=== PATIENT | female | born 2000 | race Caucasian/White ===

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

== ENCOUNTER 2019-03-30 21:45 | Emergency (ER) | payer OTHER ==
--- NOTE | 2019-03-30 22:21 | ED ---
Lower Extremity - HPI Summary HPI Summary: 18 year old F presenting to [facility] accompanied by male marketing automation analyst complains of worsening left foot pain and swelling since waking up yesterday 03/29 AM. States she had dance practice on 03/28. No injury/trauma. States she was unable to sleep last night. States the pain and swelling started at her toes then progressed up her foot. States she was seen at [facility] today 03/29 AM, was given ibuprofen, and was placed on Keflex. The patient rates the pain 9/10 in severity. Symptoms aggravated by movement. Symptoms alleviated by elevating her left foot, icing her left foot, taking ibuprofen last taken today 03/29 AM. - History of Current Complaint Chief Complaint: EDExtremityLower Stated Complaint: SWOLLEN LEFT FOOT PER PT Time Seen by Provider: 03/30/19 22:13 Hx Obtained From: Patient Onset of Pain: Days - 1 Onset/Duration: Still Present Severity Currently: Severe Pain Intensity: 9 Pain Scale Used: 0-10 Numeric Timing: Constant Location: Is Discrete @ - left foot Aggravating Factor(s): Movement Alleviating Factor(s): Other - elevating her left foot, icing her left foot, taking ibuprofen last taken today 03/29 AM - Allergies/Home Medications Allergies/Adverse Reactions: Allergies Allergy/AdvReac Type Severity Reaction Status Date / Time No Known Allergies Allergy Verified 03/30/19 22:02 PMH/Surg Hx/FS Hx/Imm Hx Endocrine/Hematology History: Denies: Hx Anticoagulant Therapy, Hx Sickle Cell Disease Cardiovascular History: Denies: Hx Cardiac Arrest, Hx Pacemaker/ICD Respiratory History: Denies: Hx Lung Cancer GI History: Denies: Hx Ileostomy History: Denies: Hx Dialysis Sensory History: Reports: Hx Contacts or Glasses Denies: Hx Legally Blind, Hx Deafness, Hx Hearing Aid Opthamlomology History: Reports: Hx Contacts or Glasses Denies: Hx Legally Blind Neurological History: Reports: Hx Headaches - s/p severe concussion 2016 Psychiatric History: Denies: Hx Schizophrenia - Surgical History Surgery Procedure, Year, and Place: Labrum torn bilateral hips Hx Anesthesia Reactions: No Infectious Disease History: No Infectious Disease History: Denies: Traveled Outside the [place] in Last 30 Days - Family History Known Family History: Negative: Seizure Disorder - Social History Alcohol Use: Rare Hx Substance Use: Yes Substance Use Type: Reports: Marijuana Substance Use Comment - Amount & Last Used: Only Occasionally Hx Tobacco Use: No Smoking Status (MU): Never Smoked Tobacco Review of Systems Negative: Fever Positive: Other - worsening left foot pain and swelling All Other Systems Reviewed And Are Negative: Yes Physical Exam - Summary Physical Exam Summary: Appearance: Well-appearing, Well-nourished, lying in bed comfortable Skin: Warm, dry, no obvious rash Eyes: sclera anicteric, no conjunctival pallor ENT: mucous membranes moist Neck: deferred Respiratory: No signs of respiratory distress Cardiovascular: Appears well perfused, pulses are nml Abdomen: deferred Musculoskeletal: There is an area of cellulitis on the left great toe with some distension into adjacent forefoot. No lymphangitic streaking, fluctuance or other signs of abscess. Neurological: Awake and alert, mentation is normal, speech is fluent and appropriate Psychiatric: affect is normal, does not appear anxious or depressed Triage Information Reviewed: Yes Vital Signs On Initial Exam: Initial Vitals Temp Pulse Resp BP Pulse Ox 98.3 F 83 16 129/89 96 03/30/19 21:56 03/30/19 21:56 03/30/19 21:56 03/30/19 21:56 03/30/19 21:56 Vital Signs Reviewed: Yes Procedures - Sedation Patient Received Moderate/Deep Sedation with Procedure: No Diagnostics - Vital Signs Vital Signs Temp Pulse Resp BP Pulse Ox 03/30/19 21:56 98.3 F 83 16 129/89 96 - Laboratory Result Diagrams: 03/30/19 22:41 03/30/19 22:41 Lab Statement: Any lab studies that have been ordered have been reviewed, and results considered in the medical decision making process. Lower Extremity Course/Dx - Course Course Of Treatment: 18 year old F complains of worsening left foot pain and swelling since waking up yesterday 03/29 AM. States she had dance practice on . No injury/trauma. States she was seen at [facility] today 10 AM, was given ibuprofen, and was placed on Keflex. Upon exam, there is an area of cellulitis on the left great toe with some distension into adjacent forefoot. No lymphangitic streaking, fluctuance or other signs of abscess. Bloodwork results with no significant abnormalities except for RBC 4.94, RDW 16, absolute monos 0.9. The patient has not had ibuprofen since today 10 AM. In the ED course, the patient was given ibuprofen 400 mg PO. Patient will be discharged home with follow up from [facility] at . She was advised to continue taking the antibiotic and was instructed to return to Emergency Department for new or worsening symptoms. She was advised to use ice, take Motrin or Naprosyn for the pain. Patient understands and is agreeable to this plan - Diagnoses Provider Diagnoses: Cellulitis Discharge ED - Sign-Out/Discharge Documenting (check all that apply): Patient Departure - Discharge - Discharge Plan Condition: Good Disposition: HOME Patient Education Materials: Cellulitis (ED) Referrals: [facility] @ [Outside] Additional Instructions: It looks like you have an infection in the skin of the big toe that is starting to move up into the foot. The [facility] has started you on an appropriate antibiotic for this, but it usually takes 2-3 days on the medication for it to start going down, and often will get somewhat worse in the first 1-2 days on antibiotics. So what has happened through the day is not unexpected. Continue taking the antibiotic and if it isn't getting better by the end of the weekend, or if it gets a lot worse in the meantime you should be seen again. Ice and motrin or naprosyn can be take for pain. - Billing Disposition and Condition Condition: GOOD Disposition: Home - Attestation Statements Document Initiated by Ivory: Yes Documenting Scribe: Kellen Juan Provider For Whom Ivory is Documenting (Include Credential): Severiano Francis MD Scribe Attestation: I, Kellen Juan, scribed for Severiano Francis MD on 03/31/19 at 0203. Scribe Documentation Reviewed: Yes Provider Attestation: The documentation as recorded by the Kellen dominguez accurately reflects the service I personally performed and the decisions made by me, Severiano Francis MD Status of Scribe Document: Viewed
[2019-03-30] MEDS ORDERED: Ibuprofen TAB* 400 MG PO ONE (22:28)
[2019-03-30 22:53] LABS: ABS Basophils 0.1 10^3/ul (0-0.2); ABS Eosinophils 0.1 10^3/ul (0-0.6); ABS Lymphocytes 3.1 10^3/ul (1.0-4.8); ABS Monocytes 0.9 10^3/ul (0-0.8); ABS Neutrophils 5.7 10^3/ul (1.5-7.7); Eosinophil % 0.7 %; Hematocrit 40 % (35-47); Hemoglobin 13.2 g/dL (12.0-16.0); Lymphocyte % 31.4 %; Mean Corpuscular HGB Conc 33 g/dL (31-36); Mean Corpuscular Hemoglobin 27 pg (27-31); Mean Corpuscular Volume 81 fL (80-97); Mean Platelet Volume 9.6 fL (7.4-10.4); Platelet Count 277 10^3/uL (150-450); Red Blood Count 4.94 10^6 /uL (3.70-4.87); Red Cell Distribution Width 16 % (10-15); White Blood Count 9.9 10^3/uL (3.5-10.8)
[2019-03-30 22:59] VITALS: BP 139/85
[2019-03-30 23:04] LABS: BUN/Creatinine Ratio 18.3 (8-20); Calcium 9.8 mg/dL (8.6-10.3); EGFR African American 128.3 (>60); Potassium 3.7 mmol/L (3.5-5.0)
== END 2019-03-30 22:45 | disposition home or self-care (01) ==
LOC: ED 21:45
DX: L03.116 Cellulitis of left lower limb (principal)
CPT/HCPCS: 36415; 80048; 85025; 99281; A9270-GY

== ENCOUNTER 2020-07-24 13:36 | Inpatient (IN) ==
[2020-07-24 15:06] LABS: ABS Lymphocytes 1.7 10^3/ul (1.0-4.8); ABS Monocytes 0.4 10^3/ul (0-0.8); ABS Neutrophils 5.3 10^3/ul (1.5-7.7); Eosinophil % 0.2 %; Hematocrit 43 % (35-47); Hemoglobin 14.5 g/dL (12.0-16.0); Lymphocyte % 22.5 %; Mean Corpuscular HGB Conc 33 g/dL (31-36); Mean Corpuscular Hemoglobin 28 pg (27-31); Mean Corpuscular Volume 85 fL (80-97); Mean Platelet Volume 9.8 fL (7.4-10.4); Platelet Count 248 10^3/uL (150-450); Red Cell Distribution Width 15 % (10-15); White Blood Count 7.3 10^3/uL (3.5-10.8)
[2020-07-24 15:28] LABS: TSH Ultra Thyroid Stim Horm 0.84 mcIU/mL (0.34-5.60)
[2020-07-24 15:35] LABS: Urine Appearance Turbid; Urine Bilirubin Negative (Negative); Urine Blood Negative (Negative); Urine Color Yellow; Urine Glucose Negative (Negative); Urine Ketones Negative (Negative); Urine Nitrite Negative (Negative); Urine Protein Negative (Negative); Urine Specific Gravity 1.016 (1.010-1.030); Urine Urobilinogen Negative (Negative)
[2020-07-24 15:35] LABS: ALT 19 U/L (7-52); AST 21 U/L (13-39); Albumin 4.7 g/dL (3.2-5.2); Albumin/Globulin Ratio 1.6 (1-3); Alkaline Phosphatase 69 U/L (34-104); Anion Gap 9 mmol/L (2-11); BUN/Creatinine Ratio 15.5 (8-20); Blood Urea Nitrogen 11 mg/dL (6-24); CO2 Carbon Dioxide 26 mmol/L (22-32); Calcium 9.7 mg/dL (8.6-10.3); Chloride 104 mmol/L (101-111); Glucose 88 mg/dL (70-100); Potassium 3.5 mmol/L (3.5-5.0); Sodium 139 mmol/L (135-145); Total Protein 7.7 g/dL (6.4-8.9)
[2020-07-24 15:39] LABS: Acetaminophen < 15 mcg/mL; Alcohol, S < 10 mg/dL (<10); Salicylate < 2.50 mg/dL (<30)
[2020-07-24 15:42] LABS: Urine Benzodiazepine Screen None Detected (None Detect); Urine Cannabinoids Screen Presumptive Positive (None Detect); Urine Opiates Screen None Detected (None Detect)
[2020-07-24] MEDS ORDERED: Al Hydrox/Mg Hydrox/Simet LIQ 30 ML UDC PO PRN (17:15)
[2020-07-25 03:18] LABS: HIV 4th Generation Nonreactive (Nonreactive)
[2020-07-25] MEDS: Vitamin THERAPEUTIC TAB PO SCH (14:10)
[2020-07-25 17:04] LABS: HCG Pregnancy < 0.60 mIU/mL
[2020-07-26] MEDS: Vitamin THERAPEUTIC TAB PO SCH (12:09)
[2020-07-27] MEDS: Vitamin THERAPEUTIC TAB PO SCH (07:28)
[2020-07-28] MEDS: Vitamin THERAPEUTIC TAB PO SCH (08:55)
[2020-07-29] MEDS: Vitamin THERAPEUTIC TAB PO SCH (08:47)
[2020-07-29 09:02] VITALS: BP 112/69
== END 2020-07-29 15:47 | disposition home or self-care (01) | DRG 881 ==
LOC: ED 13:36 → BSU 17:15
PROVIDERS: ADMIT Psychiatry & Neurology Psychiatry; ATTEND Psychiatry & Neurology Psychiatry